=== PATIENT | female | born 1990 | race American Indian/Alaskan Native ===

== ENCOUNTER 2018-05-08 16:56 | Inpatient (IN) | payer OTHER ==
[2018-05-08 20:26] VITALS: BMI 25.2
[2018-05-08] MEDS ORDERED: Sodium Chloride 0.9% 1,000 ML IV SCH (21:00)
--- NOTE | 2018-05-08 21:58 | CP.PCM.HP ---
History of Present Illness - History of Present Illness History of Present Illness: 27 yo female with history of Seizure and Asthma was transferred from [facility] to [facility] for the purpose of continuous video EEG monitoring because of recurrent seizure activity. Patient claimed he had another seizure activity duri ng transport and another one some moment ago. Present on Admission - Present on Admission Any Indicators Present on Admission: No History of DVT/PE: No History of Uncontrolled Diabetes: No Urinary Catheter: No Decubitus Ulcer Present: No Review of Systems - Review of Systems All systems: reviewed and no additional remarkable complaints except (aside from those mentioned above, 12 point system review were negative by me) Past Patient History - Infectious Disease Hx of Infectious Diseases: None - Past Medical History & Family History Past Medical History?: Yes - Past Social History Smoking Status: Never Smoked Alcohol: None Drugs: Denies - CARDIAC Hx Cardiac Disorders: No - PULMONARY Hx Respiratory Disorders: Yes Hx Asthma: Yes - NEUROLOGICAL Hx Neurological Disorder: Yes Hx Seizures: Yes Other/Comment: pt states she has "not been able to use her legs to walk since 05/05" - HEENT Hx HEENT Problems: No - RENAL Hx Chronic Kidney Disease: No - ENDOCRINE/METABOLIC Hx Endocrine Disorders: No - HEMATOLOGICAL/ONCOLOGICAL Hx Blood Disorders: No - INTEGUMENTARY Hx Dermatological Problems: No - MUSCULOSKELETAL/RHEUMATOLOGICAL Hx Musculoskeletal Disorders: Yes Hx Falls: Yes Other/Comment: pt states she has "not been able to use her legs to walk since 05/05" - GASTROINTESTINAL Hx Gastrointestinal Disorders: No - GENITOURINARY/GYNECOLOGICAL Hx Genitourinary Disorders: No - PSYCHIATRIC Hx Psychophysiologic Disorder: No Hx Substance Use: No - SURGICAL HISTORY Hx Surgeries: Yes Other/Comment: cyst removal on left breast - ANESTHESIA Hx Anesthesia: Yes Hx Anesthesia Reactions: No Hx Malignant Hyperthermia: No Meds Allergies/Adverse Reactions: Allergies Allergy/AdvReac Type Severity Reaction Status Date / Time pineapple Allergy Verified 05/05/18 12:44 cantaloupe Allergy Uncoded 05/05/18 12:44 Physical Exam - Constitutional Appears: No Acute Distress - Head Exam Head Exam: ATRAUMATIC - Eye Exam Eye Exam: absent: Scleral icterus - ENT Exam ENT Exam: Mucous Membranes Moist - Neck Exam Neck exam: Negative for: Meningismus - Respiratory Exam Respiratory Exam: absent: Rales, Rhonchi, Wheezes, Respiratory Distress - Cardiovascular Exam Cardiovascular Exam: REGULAR RHYTHM, +S1, +S2 - GI/Abdominal Exam GI & Abdominal Exam: Soft. absent: Tenderness - Rectal Exam Rectal Exam: Deferred - Extremities Exam Extremities exam: Negative for: calf tenderness, pedal edema - Back Exam Back exam: NORMAL INSPECTION - Neurological Exam Neurological exam: Alert, Oriented x3 - Psychiatric Exam Psychiatric exam: Normal Affect - Skin Skin Exam: Dry, Intact Results - Vital Signs Recent Vital Signs: Last Vital Signs Temp 98.5 F 05/08/18 19:40 Pulse 103 H 05/08/18 21:00 Resp 20 05/08/18 21:00 BP 105/56 L 05/08/18 19:40 Pulse Ox 100 05/08/18 21:00 Assessment & Plan - Assessment and Plan (Free Text) Assessment: 27 yo female with history of Seizure and Asthma was transferred from [facility] to [facility] for the purpose of continuous video EEG monitoring because of recurrent seizure activity. 1. Recurrent Seizure R/O pseudo-seizure continue Keppra and Depakote Ativan 2mg IVP q 3hrs prn Dr Major on consult will start continuous video EEG monitoring
[2018-05-08] MEDS: levETIRAcetam 500 MG in Sodium Chloride 0.9% 100 ML IVPB SCH (22:00)
--- NOTE | 2018-05-09 03:19 | CP.PCM.PCO ---
Physician Communication Note - Physician Communication Note Physician Communication Note: VEEG so far: EEG normal during typical seizure events. Full report pending
[2018-05-09 05:34] LABS: ALBUMIN 3.8 g/dL (3.5-5.0); ALT/SGPT 22 U/L (9-52); AST/SGOT 28 U/L (14-36); BLOOD UREA NITROGEN 14 mg/dl (7-17); CALCIUM 9.3 mg/dL (8.4-10.2); GFR NON-AFRICAN AMERICAN > 60
[2018-05-09 05:38] LABS: BASO # 0.1 K/uL (0.0-0.2); BASO % 0.7 % (0.0-2.0); EOS # 0.7 K/uL (0.0-0.7); EOS % 9.3 % (0.0-4.0); HEMOGLOBIN 12.6 g/dL (12.0-16.0); INR 1.2; LYMPH # 2.8 K/uL (1.0-4.3); LYMPH % 38.7 % (20.0-40.0); MEAN CELL VOLUME 83.8 fl (81.0-99.0); MEAN CORPUSCULAR HEMOGLOBIN 27.4 pg (27.0-31.0); MEAN CORPUSCULAR HGB CONC 32.7 g/dL (33.0-37.0); MEAN PLATELET VOLUME 8.7 fl (7.2-11.7); MONO # 0.6 K/uL (0.0-0.8); MONO % 8.4 % (0.0-10.0); NEUT # 3.1 K/uL (1.8-7.0); NEUT % 42.9 % (50.0-75.0); NRBC % 0.1 % (0.0-0.0); RBC 4.59 Mil/uL (3.80-5.20); RED CELL DISTRIBUTION WIDTH 13.1 % (11.5-14.5); WHITE BLOOD COUNT 7.3 K/uL (4.8-10.8)
[2018-05-09 05:41] LABS: PARTIAL THROMBOPLASTIN TIME 31.9 Seconds (25.6-37.1)
[2018-05-09] MEDS ORDERED: Enoxaparin 40 mg Syringe SC SCH (09:00)
[2018-05-09] MEDS ORDERED: Pneumococcal 23-Valent Vaccine IM ONE (09:00)
[2018-05-09] MEDS ORDERED: Divalproex 250 mg DR(BID formulation) PO SCH (09:00)
[2018-05-09] MEDS: levETIRAcetam 500 MG in Sodium Chloride 0.9% 100 ML IVPB SCH (09:31)
[2018-05-09] MEDS ORDERED: Influenza Vaccine 60 MCG/0.5 ML SYR (3 yr & up) IM ONE (10:00)
[2018-05-09 11:13] VITALS: O2SAT 97
[2018-05-09 12:30] VITALS: BP 99/56; PULSE 128; RESP 15; TEMP 97.6
--- NOTE | 2018-05-09 12:36 | CP.PCM.PN ---
Subjective - Date & Time of Evaluation Date of Evaluation: 05/09/18 Time of Evaluation: 09:00 Objective - Vital Signs/Intake and Output Vital Signs (last 24 hours): Temp Pulse Resp BP Pulse Ox 97.6 F 128 H 15 99/56 L 97 05/09/18 12:00 05/09/18 12:00 05/09/18 12:00 05/09/18 12:00 05/09/18 10:00 - Medications Medications: Current Medications Acetaminophen (Tylenol 325mg Tab) 650 mg PO Q4 PRN PRN Reason: Other Divalproex Sodium (Depakote Dr(*Bid*)) 750 mg PO BID [facility] Last Admin: 05/09/18 09:30 Dose: Not Given Enoxaparin Sodium (Lovenox) 40 mg SC DAILY [facility]; Protocol Last Admin: 05/09/18 09:31 Dose: 40 mg Levetiracetam 500 mg/ Sodium (Chloride) 105 mls @ 210 mls/hr IVPB Q12 ANTONINO Last Admin: 05/09/18 09:31 Dose: 210 mls/hr Lorazepam (Ativan) 2 mg IVP Q3 PRN PRN Reason: Seizure activity Last Admin: 05/08/18 20:55 Dose: 2 mg - Labs Labs: 05/09/18 04:40 05/09/18 04:40 PT 13.0 Seconds (9.8-13.1) 05/09/18 04:40 INR 1.2 05/09/18 04:40 APTT 31.9 Seconds (25.6-37.1) 05/09/18 04:40
--- NOTE | 2018-05-09 15:27 | CP.PCM.DIS ---
<Margoth Martínez - Last Filed: 05/09/18 16:03> Provider - Provider Date of Admission: 05/08/18 20:00 Attending physician: Mauri Ambrosio MD Time Spent in preparation of Discharge (in minutes): 30 Hospital Course - Lab Results Lab Results: Most Recent Lab Values WBC 7.3 K/uL (4.8-10.8) 05/09/18 04:40 RBC 4.59 Mil/uL (3.80-5.20) 05/09/18 04:40 Hgb 12.6 g/dL (12.0-16.0) 05/09/18 04:40 Hct 38.5 % (34.0-47.0) 05/09/18 04:40 MCV 83.8 fl (81.0-99.0) 05/09/18 04:40 MCH 27.4 pg (27.0-31.0) 05/09/18 04:40 MCHC 32.7 g/dL (33.0-37.0) L 05/09/18 04:40 RDW 13.1 % (11.5-14.5) 05/09/18 04:40 Plt Count 250 K/uL (130-400) 05/09/18 04:40 MPV 8.7 fl (7.2-11.7) 05/09/18 04:40 Neut % (Auto) 42.9 % (50.0-75.0) L 05/09/18 04:40 Lymph % (Auto) 38.7 % (20.0-40.0) 05/09/18 04:40 [place] % (Auto) 8.4 % (0.0-10.0) 05/09/18 04:40 Eos % (Auto) 9.3 % (0.0-4.0) H 05/09/18 04:40 Baso % (Auto) 0.7 % (0.0-2.0) 05/09/18 04:40 Neut # (Auto) 3.1 K/uL (1.8-7.0) 05/09/18 04:40 Lymph # (Auto) 2.8 K/uL (1.0-4.3) 05/09/18 04:40 [place] # (Auto) 0.6 K/uL (0.0-0.8) 05/09/18 04:40 Eos # (Auto) 0.7 K/uL (0.0-0.7) 05/09/18 04:40 Baso # (Auto) 0.1 K/uL (0.0-0.2) 05/09/18 04:40 PT 13.0 Seconds (9.8-13.1) 05/09/18 04:40 INR 1.2 05/09/18 04:40 APTT 31.9 Seconds (25.6-37.1) 05/09/18 04:40 Sodium 142 mmol/l (132-148) 05/09/18 04:40 Potassium 4.0 MMOL/L (3.6-5.0) 05/09/18 04:40 Chloride 108 mmol/L (98-107) H 05/09/18 04:40 Carbon Dioxide 26 mmol/L (22-30) 05/09/18 04:40 Anion Gap 12 (10-20) 05/09/18 04:40 BUN 14 mg/dl (7-17) 05/09/18 04:40 Creatinine 0.6 mg/dl (0.7-1.2) L 05/09/18 04:40 Est GFR ( Amer) > 60 05/09/18 04:40 Est GFR (Non-Af Amer) > 60 05/09/18 04:40 POC Glucose (mg/dL) 97 mg/dL (65-110) 05/08/18 23:36 Random Glucose 88 mg/dL (65-105) 05/09/18 04:40 Calcium 9.3 mg/dL (8.4-10.2) 05/09/18 04:40 Phosphorus 3.8 mg/dl (2.5-4.5) 05/09/18 04:40 Magnesium 1.9 MG/DL (1.6-2.3) 05/09/18 04:40 Total Bilirubin 0.5 mg/dl (0.2-1.3) 05/09/18 04:40 AST 28 U/L (14-36) 05/09/18 04:40 ALT 22 U/L (9-52) 05/09/18 04:40 Alkaline Phosphatase 58 U/L (38-126) 05/09/18 04:40 Total Protein 7.5 G/DL (6.3-8.2) 05/09/18 04:40 Albumin 3.8 g/dL (3.5-5.0) 05/09/18 04:40 Globulin 3.7 gm/dL (2.2-3.9) 05/09/18 04:40 Albumin/Globulin Ratio 1.0 (1.0-2.1) 05/09/18 04:40 - Hospital Course Hospital Course: 27 y/o female with a medical history of Seizure and Asthma was transferred from [facility] to [facility] yesterday for continuous video EEG. EEG was normal during typical seizure events with full report pending. She was seen and examined this morning. Patient reported short episodes of seizures last night with occipital headaches, and leg weakness. She denied any fever, chills, chest pain or shortness of breath. Patient clinically stable. 1. Recurrent Seizure -Will discharge home on Keppra 500mg PO BID -Will follow up with her PMD Discharge Exam - Head Exam Head Exam: ATRAUMATIC, NORMAL INSPECTION - Neck Exam Neck exam: Full Rom - Respiratory Exam Respiratory Exam: Clear to PA & Lateral - Cardiovascular Exam Cardiovascular Exam: REGULAR RHYTHM, +S1, +S2 - GI/Abdominal Exam GI & Abdominal Exam: Normal Bowel Sounds, Soft, Unremarkable - Extremities Exam Additional comments: no calf tenderness - Neurological Exam Neurological exam: Oriented x3 Additional comments: On initial exam- decreased sensation on b/l lower extremities with decreased ROM in b/l lower legs R>L; strength & sensation intact b/l in upper extremities; gait- unable to stand without assistance Repeat exam- patient was able to ambulate without difficulty - Skin Skin Exam: Dry, Intact Discharge Plan - Discharge Medications Prescriptions: RX: Levetiracetam [Keppra] 500 mg PO BID #60 tablet - Follow Up Plan Condition: GOOD Disposition: HOME/ ROUTINE Instructions: Epilepsy (DC), Epilepsy (GEN) <Mauri Ambrosio - Last Filed: 05/09/18 16:17> Provider - Provider Date of Admission: 05/08/18 20:00 Attending physician: Mauri Ambrosio MD Hospital Course - Lab Results Lab Results: Most Recent Lab Values WBC 7.3 K/uL (4.8-10.8) 05/09/18 04:40 RBC 4.59 Mil/uL (3.80-5.20) 05/09/18 04:40 Hgb 12.6 g/dL (12.0-16.0) 05/09/18 04:40 Hct 38.5 % (34.0-47.0) 05/09/18 04:40 MCV 83.8 fl (81.0-99.0) 05/09/18 04:40 MCH 27.4 pg (27.0-31.0) 05/09/18 04:40 MCHC 32.7 g/dL (33.0-37.0) L 05/09/18 04:40 RDW 13.1 % (11.5-14.5) 05/09/18 04:40 Plt Count 250 K/uL (130-400) 05/09/18 04:40 MPV 8.7 fl (7.2-11.7) 05/09/18 04:40 Neut % (Auto) 42.9 % (50.0-75.0) L 05/09/18 04:40 Lymph % (Auto) 38.7 % (20.0-40.0) 05/09/18 04:40 [place] % (Auto) 8.4 % (0.0-10.0) 05/09/18 04:40 Eos % (Auto) 9.3 % (0.0-4.0) H 05/09/18 04:40 Baso % (Auto) 0.7 % (0.0-2.0) 05/09/18 04:40 Neut # (Auto) 3.1 K/uL (1.8-7.0) 05/09/18 04:40 Lymph # (Auto) 2.8 K/uL (1.0-4.3) 05/09/18 04:40 [place] # (Auto) 0.6 K/uL (0.0-0.8) 05/09/18 04:40 Eos # (Auto) 0.7 K/uL (0.0-0.7) 05/09/18 04:40 Baso # (Auto) 0.1 K/uL (0.0-0.2) 05/09/18 04:40 PT 13.0 Seconds (9.8-13.1) 05/09/18 04:40 INR 1.2 05/09/18 04:40 APTT 31.9 Seconds (25.6-37.1) 05/09/18 04:40 Sodium 142 mmol/l (132-148) 05/09/18 04:40 Potassium 4.0 MMOL/L (3.6-5.0) 05/09/18 04:40 Chloride 108 mmol/L (98-107) H 05/09/18 04:40 Carbon Dioxide 26 mmol/L (22-30) 05/09/18 04:40 Anion Gap 12 (10-20) 05/09/18 04:40 BUN 14 mg/dl (7-17) 05/09/18 04:40 Creatinine 0.6 mg/dl (0.7-1.2) L 05/09/18 04:40 Est GFR ( Amer) > 60 05/09/18 04:40 Est GFR (Non-Af Amer) > 60 05/09/18 04:40 POC Glucose (mg/dL) 97 mg/dL (65-110) 05/08/18 23:36 Random Glucose 88 mg/dL (65-105) 05/09/18 04:40 Calcium 9.3 mg/dL (8.4-10.2) 05/09/18 04:40 Phosphorus 3.8 mg/dl (2.5-4.5) 05/09/18 04:40 Magnesium 1.9 MG/DL (1.6-2.3) 05/09/18 04:40 Total Bilirubin 0.5 mg/dl (0.2-1.3) 05/09/18 04:40 AST 28 U/L (14-36) 05/09/18 04:40 ALT 22 U/L (9-52) 05/09/18 04:40 Alkaline Phosphatase 58 U/L (38-126) 05/09/18 04:40 Total Protein 7.5 G/DL (6.3-8.2) 05/09/18 04:40 Albumin 3.8 g/dL (3.5-5.0) 05/09/18 04:40 Globulin 3.7 gm/dL (2.2-3.9) 05/09/18 04:40 Albumin/Globulin Ratio 1.0 (1.0-2.1) 05/09/18 04:40 Attending/Attestation - Attestation I have personally seen and examined this patient.: Yes I have fully participated in the care of the patient.: Yes I have reviewed all pertinent clinical information, including history, physical exam and plan: Yes
== END 2018-05-09 14:51 | disposition home or self-care (01) | DRG 890 ==
LOC: H.ICU/CCU 20:00
PROC: 3E02340 Introduction of Influenza Vaccine into Muscle, Percutaneous Approach (ICD-10-PCS; principal; 2018-05-09)
PROC: 3E0234Z Introduction of Serum, Toxoid and Vaccine into Muscle, Percutaneous Approach (ICD-10-PCS; 2018-05-09)
DX: G40.909 Epilepsy, unspecified, not intractable, without status epilepticus (principal); J45.909 Unspecified asthma, uncomplicated; Z91.018 Allergy to other foods; Z23 Encounter for immunization